=== PATIENT | female | born 1980 | race Caucasian/White ===

== ENCOUNTER 2016-08-29 19:05 | Emergency (ER) | payer OTHER ==
[2016-08-29 19:24] VITALS: BP 117/73
--- NOTE | 2016-08-29 19:24 | UC ---
Minor Trauma HPI - HPI Summary HPI Summary: 35 year old female presents right sided facial trauma secondary to a cane. I will send her to the ER to rule out mandibular fracture. I spoke to Desi Espinal. - History of Current Complaint Chief Complaint: UCTrauma Stated Complaint: FACIAL INJURY/PAIN Time Seen by Provider: 08/29/16 19:17 Hx Last Menstrual Period: ABLATION/E-E-SURE/hysterectomy - Allergies/Home Medications Allergies/Adverse Reactions: Allergies Allergy/AdvReac Type Severity Reaction Status Date / Time Metoclopramide [From Reglan] Allergy Intermediate Anxiety Verified 08/29/16 19: 16 Codeine Allergy syncope Verified 08/29/16 19:16 Home Medications: Home Medications Baclofen TAB* [Lioresal TAB*] 10 mg PO TID 08/29/16 [History Confirmed 08/29/16] Dicyclomine CAP* [Bentyl CAP*] 10 mg PO BEDTIME 08/29/16 [History Confirmed ] Venlafaxine ER (NF) [Effexor ER (NF)] 150 mg PO DAILY 08/29/16 [History Confirmed 08/29/16] carBAMazepine ER TAB(*) [TEGretol Xr TAB(*)] 300 mg PO BID 08/29/16 [History Confirmed 08/29/16] oxyCODONE/Acetamin 5/325 MG* [Percocet 5/325 TAB*] 1 tab PO Q8H PRN 08/29/16 [ History Confirmed 08/29/16] PMH/Surg Hx/FS Hx/Imm Hx Other History Of: Negative For: HIV, Hepatitis B, Hepatitis C - Surgical History Surgical History: Yes Surgery Procedure, Year, and Place: uterine ablation 2005. wisdom teeth . gallbladder 07/16/2012. tonsillectomy. HYSTERECTOMY FOR FIBROID TUMORS- AUGUST 2014 - Family History Known Family History: Positive: Cardiac Disease, Hypertension - Social History Alcohol Use: Occasionally Substance Use Type: None Smoking Status (MU): Current Every Day Smoker Type: Cigarettes Amount Used/How Often: 1 PK A DAY Length of Time of Smoking/Using Tobacco: 20 YRS Have You Smoked in the Last Year: Yes When Did the Patient Quit Smoking/Using Tobacco: 2 YRS AGO - Immunization History Most Recent Influenza Vaccination: 10/2014 Review of Systems Constitutional: Negative Skin: Negative Eyes: Other - right sided facial trauma ENT: Negative Respiratory: Negative Cardiovascular: Negative Gastrointestinal: Negative Genitourinary: Negative Motor: Negative Neurovascular: Negative Musculoskeletal: Negative Neurological: Negative Psychological: Negative All Other Systems Reviewed And Are Negative: Yes Physical Exam Triage Information Reviewed: Yes Eye Exam: Normal ENT: Positive: Other: - right sided facial trauma with tenderness over the mandibular bone. Dental Exam: Normal Neck exam: Normal Neck: Positive: 1 Respiratory Exam: Normal Cardiovascular Exam: Normal Abdominal Exam: Normal Musculoskeletal Exam: Normal Neurological Exam: Normal Psychological Exam: Normal Skin Exam: Normal Minor Trauma Course/Dx - Differential Dx/Diagnosis Provider Diagnoses: right sideded facial trauma Discharge - Discharge Plan Condition: Stable Disposition: AGAINST MEDICAL ADVICE Patient Education Materials: Facial Fracture (ED) Referrals: Razia rGant MD [Primary Care Provider] -
== END 2016-08-29 19:30 | disposition left against medical advice (07) ==
LOC: UCCORT 19:05
DX: S09.93XA Unspecified injury of face, initial encounter (principal); X58.XXXA Exposure to other specified factors, initial encounter; Y92.9 Unspecified place or not applicable; F17.210 Nicotine dependence, cigarettes, uncomplicated; Z88.5 Allergy status to narcotic agent; Z88.8 Allergy status to other drugs, medicaments and biological substances
CPT/HCPCS: 99212; G0463

== ENCOUNTER 2016-09-12 16:53 | Emergency (ER) | payer OTHER ==
[2016-09-12 17:06] VITALS: BP 129/69
--- NOTE | 2016-09-12 18:15 | UC ---
Respiratory Complaint HPI - HPI Summary HPI Summary: Pt presents with c/o of chest tightness, difficulty breathing . Pt reports taht she was diagnosed with pneumonia 9 days ago and is currently taking doxycycline. pt denies cough but c/o pain with deep breaths in left upper back. Pain is reproducible with palpation and worsens while laying on back - History of Current Complaint Hx Obtained From: Patient Hx Last Menstrual Period: ABLATION/E-E-SURE/hysterectomy ?: No Onset/Duration: Gradual Onset, Lasting Days, Still Present Timing: Constant Severity Initially: Mild Severity Currently: Mild Pain Intensity: 8 Pain Scale Used: 0-10 Numeric Aggravating Factors: Recumbent Position Associated Signs And Symptoms: Positive: Dyspnea - Risk Factors Pulmonary Embolism Risk Factors: Negative Cardiac Risk Factors: Negative Pseudomonas Risk Factors: Negative Tuberculosis Risk Factors: Negative <Viry Cherry NP - Last Filed: 09/12/16 18:10> <Anuradha Liao - Last Filed: 09/12/16 18:50> - History of Current Complaint Chief Complaint: UCRespiratory Stated Complaint: SHORTNESS OF BREATH Time Seen by Provider: 09/12/16 17:40 - Allergies/Home Medications Allergies/Adverse Reactions: Allergies Allergy/AdvReac Type Severity Reaction Status Date / Time Metoclopramide [From Reglan] Allergy Intermediate Anxiety Verified 09/12/16 17: 06 Codeine Allergy syncope Verified 09/12/16 17:06 Home Medications: Home Medications ALPRAZolam TAB* [Xanax TAB*] 0.5 mg PO TID PRN 09/12/16 [History Confirmed 09/12] Baclofen TAB* [Lioresal TAB*] 10 mg PO TID 09/12/16 [History Confirmed 09/12/16] DOXYcycline CAP(*) [DOXYcycline 100MG CAP(*)] 100 mg PO BID 09/12/16 [History Confirmed 09/12/16] Pravastatin Sodium [Pravachol] 40 mg PO DAILY 09/12/16 [History Confirmed ] PMH/Surg Hx/FS Hx/Imm Hx Previously Healthy: Yes Endocrine History: Dyslipidemia Psychological History: Anxiety Other History Of: Negative For: HIV, Hepatitis B, Hepatitis C - Surgical History Surgical History: Yes Surgery Procedure, Year, and Place: uterine ablation 2005. wisdom teeth . gallbladder 07/16/2012. tonsillectomy. HYSTERECTOMY FOR FIBROID TUMORS- AUGUST 2014 - Family History Known Family History: Positive: Cardiac Disease, Hypertension - Social History Occupation: Employed Full-time Lives: With Family Alcohol Use: None Substance Use Type: None Smoking Status (MU): Current Every Day Smoker Type: Cigarettes Amount Used/How Often: 1/2 PK A DAY Length of Time of Smoking/Using Tobacco: 20 YRS Have You Smoked in the Last Year: Yes When Did the Patient Quit Smoking/Using Tobacco: 2 YRS AGO - Immunization History Most Recent Influenza Vaccination: 10/2014 <Viry Cherry NP Last Filed: 09/12/16 18:10> Review of Systems Constitutional: Negative Skin: Negative Eyes: Negative ENT: Negative Respiratory: Other - pain with deep breathing Cardiovascular: Negative Gastrointestinal: Negative Genitourinary: Negative Motor: Negative Neurovascular: Negative Musculoskeletal: Myalgia - upper back/ribs left side Neurological: Negative Psychological: Negative All Other Systems Reviewed And Are Negative: Yes <Viry Cherry NP - Last Filed: 09/12/16 18:10> Physical Exam Triage Information Reviewed: Yes Appearance: Well-Appearing Vital Signs: Initial Vital Signs Temp 98.6 F 09/12/16 17:01 Pulse 100 09/12/16 17:01 Resp 18 09/12/16 17:01 BP 129/69 09/12/16 17:01 Pulse Ox 97 09/12/16 17:01 Vital Signs Reviewed: Yes Eye Exam: Normal ENT Exam: Normal Dental Exam: Normal Neck exam: Normal Respiratory Exam: Normal Cardiovascular Exam: Normal Abdominal Exam: Normal Musculoskeletal Exam: Other Musculoskeletal: Positive: Other: - tenderness upper left side back ~ Neurological Exam: Normal Psychological Exam: Normal Skin Exam: Normal <Viry Cherry NP Last Filed: 09/12/16 18:10> Vital Signs: Initial Vital Signs Temp 98.6 F 09/12/16 17:01 Pulse 100 09/12/16 17:01 Resp 18 09/12/16 17:01 BP 129/69 09/12/16 17:01 Pulse Ox 97 09/12/16 17:01 <Anuradha Liao - Last Filed: 09/12/16 18:50> UC Diagnostic Evaluation - Laboratory O2 Sat by Pulse Oximetry: 97 <Viry Cherry NP - Last Filed: 09/12/16 18:10> Respiratory Course/Dx - Differential Dx/Diagnosis Differential Diagnosis/HQI/PQRI: Other - costochondritis Provider Diagnoses: costochondritis <Viry Cherry NP - Last Filed: 09/12/16 18:10> Discharge <Viry Cherry NP - Last Filed: 09/12/16 18:10> <Anuradha Liao - Last Filed: 09/12/16 18:50> - Discharge Plan Condition: Stable Disposition: HOME Prescriptions: predniSONE TAB* [Deltasone TAB*] 20 mg PO DAILY #4 tab Patient Education Materials: Costochondritis (ED) Referrals: Savanah Rodriges PA [Primary Care Provider] - If Needed Additional Instructions: Please follow up with your PCP or return to clinic as needed Attestation Statement User Type: Provider - I was available for consult. This patient was seen by the [facility]. The patient was not presented to, seen by, or examined by me. -Gabriela <Anuradha Liao - Last Filed: 09/12/16 18:50>
== END 2016-09-12 17:55 | disposition home or self-care (01) ==
LOC: UCCORT 16:53
DX: M94.0 Chondrocostal junction syndrome [Tietze] (principal); E78.5 Hyperlipidemia, unspecified; Z88.5 Allergy status to narcotic agent; F41.9 Anxiety disorder, unspecified; Z87.891 Personal history of nicotine dependence
CPT/HCPCS: 99212; G0463

== ENCOUNTER 2016-12-07 12:56 | Emergency (ER) | payer OTHER ==
[2016-12-07 13:16] VITALS: BP 149/91
[2016-12-07] MEDS ORDERED: Ketorolac INJ* 60 MG/2 ML VIAL IM ONE (13:29)
--- NOTE | 2016-12-07 13:53 | UC ---
UC General HPI - HPI Summary HPI Summary: Pt reports history of trigeminal neuralgia. Pt reports that her PCP has moved and is now out of pain medications. On review of iSTOP pt was given 30 day supply of percocet from PCP. - History of Current Complaint Chief Complaint: UCUpperExtremity Stated Complaint: TRIGEMINAL NEURALGIA Time Seen by Provider: 12/07/16 13:14 Hx Obtained From: Patient Hx Last Menstrual Period: ABLATION/E-E-SURE/hysterectomy Onset/Duration: Gradual Onset, Lasting Days Timing: Constant Onset Severity: Mild Current Severity: Moderate Associated Signs & Symptoms: Positive: Other - facial pain, - Allergy/Home Medications Allergies/Adverse Reactions: Allergies Allergy/AdvReac Type Severity Reaction Status Date / Time Metoclopramide [From Reglan] Allergy Intermediate Anxiety Verified 12/07/16 13: 16 Codeine Allergy syncope Verified 12/07/16 13:16 Gabapentin Allergy Swelling Verified 12/07/16 13:16 PMH/Surg Hx/FS Hx/Imm Hx Previously Healthy: Yes Other History Of: Negative For: HIV, Hepatitis B, Hepatitis C - Surgical History Surgical History: Yes Surgery Procedure, Year, and Place: uterine ablation 2005. wisdom teeth . gallbladder 07/16/2012. tonsillectomy. HYSTERECTOMY FOR FIBROID TUMORS- AUGUST 2014 - Family History Known Family History: Positive: Cardiac Disease, Hypertension - Social History Occupation: Employed Full-time Lives: With Family Alcohol Use: Rare Substance Use Type: None Smoking Status (MU): Current Every Day Smoker Type: Cigarettes Amount Used/How Often: 1/2 PK A DAY Length of Time of Smoking/Using Tobacco: 20 YRS Have You Smoked in the Last Year: Yes When Did the Patient Quit Smoking/Using Tobacco: 2 YRS AGO - Immunization History Most Recent Influenza Vaccination: 10/2014 Review of Systems Constitutional: Negative Skin: Negative Eyes: Negative ENT: Negative Respiratory: Negative Cardiovascular: Negative Gastrointestinal: Negative Genitourinary: Negative Motor: Negative Neurovascular: Negative Musculoskeletal: Myalgia - right side of face that radiates to under right eye Neurological: Other - hx of trimgeminal neuralgia Psychological: Negative Is Patient Immunocompromised?: No All Other Systems Reviewed And Are Negative: Yes Physical Exam Triage Information Reviewed: Yes Appearance: Well-Appearing Vital Signs: Initial Vital Signs Temp 98.7 F 12/07/16 13:10 Pulse 103 12/07/16 13:10 Resp 24 12/07/16 13:10 BP 149/91 12/07/16 13:10 Pulse Ox 98 12/07/16 13:10 Vital Signs Reviewed: Yes Eye Exam: Normal ENT Exam: Normal Dental Exam: Normal Neck exam: Normal Respiratory Exam: Normal Cardiovascular Exam: Normal Musculoskeletal Exam: Normal Neurological Exam: Normal Psychological Exam: Normal Skin Exam: Other - c/o tenderness right side of face, cheek Course/Dx - Differential Dx - Multi-Symptom Differential Diagnoses: Other - trigeminal neuralgia Provider Diagnoses: Facial pain. tirgeminal neuralgia acute flair. Discharge - Discharge Plan Condition: Stable Disposition: HOME Prescriptions: Ketorolac TAB * [Toradol TAB *] 10 mg PO Q6H PRN #8 tab PRN Reason: Pain methylPREDNISolone TAB* [Medrol TAB*] 4 - 8 mg PO .SEE RISHABH #1 rishabh Patient Education Materials: Trigeminal Neuralgia (ED) Referrals: Savanah Rodriges PA [Physician Stove Bottom Worker] - If Needed
== END 2016-12-07 13:51 | disposition home or self-care (01) ==
LOC: UCCORT 12:56
DX: G50.0 Trigeminal neuralgia (principal); F17.210 Nicotine dependence, cigarettes, uncomplicated; Z88.6 Allergy status to analgesic agent
CPT/HCPCS: 96372; 99211; G0463; J1885

== ENCOUNTER → 2017-04-12 12:45 | Emergency (ER) | payer OTHER | END | disposition left against medical advice (07) | LOC: UCCORT 12:45 | DX: J34.89 Other specified disorders of nose and nasal sinuses (principal); Z53.21 Procedure and treatment not carried out due to patient leaving prior to being seen by health care provider ==

== ENCOUNTER 2017-09-22 15:41 | Emergency (ER) | payer OTHER ==
--- OUTSIDE RECORDS SUMMARY | 2017-09-22 16:02 | XMS REPORT ---
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 INTERMITTENT ASTHMA, UNCOMPLICATED 15 Performed at: RN - [facility] [address] [id number] Senior Client Advisor: Preethi Solano MD, Phone: [phone] OPERATION/PROCEDURE Lap. cholecystectomy DIAGNOSIS: "GALLBLADDER, LAP. CHOLECYSTECTOMY": MILD CHRONIC CHOLECYSTITIS. NO EVIDENCE OF ACUTE INFLAMMATION, DYSPLASIA NOR NEOPLASIA APPRECIATED. ADELFO/osmar 1345 GROSS The specimen is received in a single container additionally labeled "GALLBLADDER". This contains a grossly recognizable unopened gallbladder. This has a green shiny smooth surface and overall measures 6.5 x 2.5 x 1.8 cm. in overall dimensions. There is no a visible wall defect. The wall has a uniform thickness of 0.1 cm. The mucosal surface is green, velvety smooth and unremarkable. Trabeculations are noted. No garcia reticular discoloration of cholesterolosis is noted. No stones are noted. Inclusion Special Educator sections are submitted within a single cassette. JW/clf MICROSCOPIC Sections show gallbladder mucosa lined by columnar epithelium with focal synechia, and Rokitansky-Aschoff sinus formation. The submucosa has a mild infiltrate of lymphocytes and plasma cells. The muscular wall is slightly fibrotic and hypertrophied. PRE OPERATIVE DIAGNOSIS Cholecystitis REVIEW CODE CODE: I NANDO Carroll MD 07/20/12 1417 17 CULTURE TO FOLLOW 18 COLONY COUNT ! 10,000 - 20,000 CFU/ml Organism 1 ! MIXED URETHRAL CITLALY 19 POSSIBLE UROGENITAL CONTAMINATION. 20 07/13/12 LAB.[facility]ERT[facility] Deleted by Reflex Group [facility] 21 Note: Persistent reduction for 3 months or more in an eGFR <60 mL/min/1.73 m2 defines CKD. Patients with eGFR values >/=60 mL/min/1.73 m2 may also have CKD if evidence of persistent proteinuria is present. The original MDRD equation for estimated GFR is not valid for patients less than 18 years of age. Additional information may be found at www.[email or web address]. Procedures Date CPT Code Description Status 08/19/2017 23622 Biopsy Skin Lesion Completed 12/02/2016 08368 EKG-Tracing And Report Completed 10/24/2016 09078 Bronchospasm Provocation Evaluation Multi Spirometric Completed Determinati 10/24/2016 73700 Spirometry Completed 12/03/2015 31082 Ligation Or Biopsy,Temporal Artery Completed 08/18/2014 90915 Anesthesia, Vaginal Hysterectomy Completed 01/20/2014 10452 Anesthesia, Hysteroscopy, Hystersalpingography Completed 07/16/2012 69264 Laparoscopy; cholecystectomy Completed 07/16/2012 04479 Anesthesia, Upper Abdomen Surgery Not Otherwise Spec Completed 01/23/2011 53299 Myocardial Imaging Tomographic Multiple Study AT Rest Completed Or Stress 01/23/2011 05780 Stress Test Physician Super Only Completed 01/23/2011 04908 Stress Test Physician Super Only Completed 01/23/2011 85434 Stress Test Interpre And Report Only Completed 01/16/2011 92138 EKG-Tracing And Report Completed 01/16/2011 57162 EKG-Tracing And Report Completed 01/11/2011 07684 Echocardiogram Complete Completed 03/20/2008 74042 Colonoscopy With Polypectomy Completed 04/23/2000 09437 Cryocautery Of Cervix Completed 04/23/2000 40684 Destruct-Skin Tags/Lesions-Local Anesthesia- 2-14 Completed Lesions 04/23/2000 73750 Destruct-Skin Tags/Lesions-Local Anesthesia - First Completed Lesion 03/10/2000 14299 Colposcopy With Biopsy Completed 02/11/2000 04453 Post- Care Only Completed Encounters Type Date Location Provider CPT E/M Dx Office Visit 08/26/2017 3:45p Surgical Office Benito Lou 38737 C44.311 Shan Rey Office Visit 08/03/2017 3:15p Family Medicine TOM De La Cruz 97703 A09 Office Visit 07/27/2017 8:30a Surgical Office Abdirashid Almanza MD,FACS 74881 D48.5 Office Visit 07/02/2017 11:15a [place] [address] F41.9 Office Visit 06/24/2017 10:00a Surgical Office Abdirashid Almanza MD,FACS 17562 D48.5 Office Visit 06/08/2017 11:30a Surgical Office Abdirashid Almanza MD,FACS 53495 D48.5 Office Visit 05/26/2017 10:00a Surgical Office Abdirashid Almanza MD,FACS 03946 D48.5 Office Visit 05/21/2017 8:30a [place] [address] E87.6 F41.9 G50.0 D17.1 D48.5 Office Visit 04/16/2017 11:15a [place] [address] E87.6 R73.09 F41.9 Office Visit 03/12/2017 9:00a [place] [address] K31.84 G50.0 Office Visit 02/20/2017 10:15a Family Medicine Ninoska Forman M.D. 00398 B34.9 Office Visit 01/29/2017 3:15p [place] [address] Z00.01 R60.9 E78.2 J45.20 I10 G50.0 F17.210 K21.9 E66.01 R63.1 M79.1 Office Visit 01/16/2017 1:30p Family Medicine Terence Mary, [facility] 92552 R60.9 T42.6x5A Office Visit 01/05/2017 9:00a [place] [address] B34.9 G50.0 F17.210 Office Visit 12/31/2016 11:00a [facility] Carlene Thomas, PNP-BC, [place], 12603 G50.0 Ibclc I10 E78.2 J45.20 K21.9 F33.1 Office Visit 12/02/2016 10:20a Cardiology Office Dayron Bowen, 77818 J45.20 M.Demarcus, [facility] Z71.6 F06.4 R00.0 Office Visit 10/23/2016 1:00p [place] [address] J45.20 F17.210 Z71.6 G47.33 E66.01 Office Visit 07/07/2012 1:15p Surgical Office Benito Lou 24579 575.10 Shan Rey Office Visit 06/23/2012 11:47a Surgical Office Benito Lou 01507 789.01 Shan Rey Office Visit 04/23/2012 8:56a Cardiology Office Dayron Bowen, 52911 786.50 MTiffanie, [facility] Office Visit 01/27/2011 10:00a Cardiology [place] [address] 786.50 401.1 272.2 Office Visit 01/16/2011 11:00a Cardiology Office SADAF Adhikari 65645 786.50 401.1 272.2 Office Visit 03/16/2008 1:00p STEPHANIE Argueta M.D. 90577 578.1 Plan of Care Future Appointment(s):10/13/2017 3:00 pm - Abdirashid Almanza MD,FACS at [facility]111/20/2017 10:15 am - Rosa Liao MD at [facility]08/31/2017 - Abdirashid Almanza MD,FACSC44.311 Basal cell carcinoma of skin of noseComments: basal cell carcinoma of the left nare, incions is healing well, has little scab. will see her in 6 weeks to confirm continued healing. no macroscopic evidence of significant lesion at this time.with regards to the focally peripheral positive margin i discussed the options with herOption #1: refer her to a surgeon that perform MOH's surgery/plastic surgery because of the location of the lesion on her face for second opinion/treatmentOption #2: continue to monitor clinically. and if any clinical occurence occur, treat that with efudex cream early on, as she had benefit from cream treatment when she originally presented to me.Patient chose option #1 which i tend to agree with. will work on referring her as well.
[2017-09-22 16:45] VITALS: BP 123/81
--- NOTE | 2017-09-22 16:55 | UC ---
Ear Complaint HPI - HPI Summary HPI Summary: Pt c/o right ear ache and feeling of "itchiness" X 4 days. Pt has hx trigeminal neuralgia. - History of Current Complaint Chief Complaint: UCEar Stated Complaint: RIGHT EAR/DIZZINESS COMPLAINT Time Seen by Provider: 09/22/17 16:18 Hx Obtained From: Patient Hx Last Menstrual Period: ABLATION/E-E-SURE/hysterectomy ?: No Onset/Duration: Sudden Onset, Lasting Days, Still Present Severity Initially: Mild Severity Currently: Mild Pain Intensity: 5 Aggravating Factors: Nothing Alleviating Factors: Nothing Related History: Other (Noted In Comments) - trigeminal neuralgia - Allergies/Home Medications Allergies/Adverse Reactions: Allergies Allergy/AdvReac Type Severity Reaction Status Date / Time codeine Allergy See Comment Verified 09/22/17 16:35 gabapentin Allergy Swelling Verified 09/22/17 16:35 Of Face,Lips,& Throat metoclopramide [From Reglan] Allergy See Comment Verified 09/22/17 16:35 pregabalin [From Lyrica] Allergy Swelling Verified 09/22/17 16:35 Of Face,Lips,& Throat Home Medications: Home Medications Erythromycin TAB* 1 tab BID 09/22/17 [History Confirmed 09/22/17] Hydrochlorothiazide TAB* [Hydrodiuril TAB*] 1 tab DAILY 09/22/17 [History Confirmed 09/22/17] Omeprazole CAP* [Prilosec CAP* 20 MG] 1 cap DAILY 09/22/17 [History Confirmed ] Oxycodone HCl/Acetaminophen [Endocet 10-325 mg Tablet] 1 tab QID PRN 09/22/17 [ History Confirmed 09/22/17] Potassium Chlor TAB* [Potassium Chlor TAB 20 MEQ*] 1 tab DAILY 09/22/17 [ History Confirmed 09/22/17] PMH/Surg Hx/FS Hx/Imm Hx Previously Healthy: Yes Other History Of: Negative For: HIV, Hepatitis B, Hepatitis C - Surgical History Surgical History: Yes Surgery Procedure, Year, and Place: uterine ablation 2005. wisdom teeth . gallbladder 07/16/2012. tonsillectomy. HYSTERECTOMY FOR FIBROID TUMORS- AUGUST 2014 - Family History Known Family History: Positive: Cardiac Disease, Hypertension - Social History Occupation: Employed Full-time Lives: With Family Alcohol Use: Rare Substance Use Type: None Smoking Status (MU): Current Every Day Smoker Type: Cigarettes Amount Used/How Often: 1/2 PPD Length of Time of Smoking/Using Tobacco: 20 YRS Have You Smoked in the Last Year: Yes When Did the Patient Quit Smoking/Using Tobacco: 2 YRS AGO - Immunization History Most Recent Influenza Vaccination: 10/2014 Most Recent Tetanus Shot: utd Review of Systems Constitutional: Negative Skin: Negative Eyes: Negative ENT: Ear Ache - right ear Respiratory: Negative Cardiovascular: Negative Gastrointestinal: Negative Genitourinary: Negative Motor: Negative Neurovascular: Negative Musculoskeletal: Negative Neurological: Negative Psychological: Negative Is Patient Immunocompromised?: No All Other Systems Reviewed And Are Negative: Yes Physical Exam Triage Information Reviewed: Yes Appearance: Well-Appearing Vital Signs: Initial Vital Signs Temp 97.9 F 09/22/17 16:38 Pulse 86 09/22/17 16:38 Resp 16 09/22/17 16:38 BP 123/81 09/22/17 16:38 Pulse Ox 98 09/22/17 16:38 Vital Signs Reviewed: Yes Eye Exam: Normal ENT Exam: Normal ENT: Positive: Normal ENT inspection Dental Exam: Normal Neck exam: Normal Respiratory Exam: Normal Cardiovascular Exam: Normal Musculoskeletal Exam: Normal Neurological Exam: Normal Psychological Exam: Normal Skin Exam: Normal Ear Complaint Course/Dx - Differential Dx/Diagnosis Differential Diagnosis/HQI/PQRI: Otitis Externa, Otitis Media, TMJ Syndrome, Trigeminal Nueralgia Provider Diagnoses: right ear ache Discharge - Sign-Out/Discharge Documenting (check all that apply): Patient Departure - Discharge Plan Condition: Stable Disposition: HOME Patient Education Materials: Earache (ED) Referrals: Rosa Liao MD [Primary Care Provider] - If Needed Additional Instructions: Please follow up with your neurologist and PCP as needed. Per institutional requirements, I have reviewed the chart, however, I was not consulted specifically or made aware of this patient by the above midlevel provider. I did not personally evaluate, interact with , or disposition this patient. - Billing Disposition and Condition Condition: STABLE Disposition: Home
== END 2017-09-22 17:08 | disposition home or self-care (01) ==
LOC: UCCORT 15:41
DX: H92.01 Otalgia, right ear (principal); Z88.8 Allergy status to other drugs, medicaments and biological substances; Z87.891 Personal history of nicotine dependence
CPT/HCPCS: 99211; G0463

== ENCOUNTER 2018-06-22 10:51 | Emergency (ER) | payer OTHER ==
[2018-06-22 11:09] VITALS: BP 146/71
--- NOTE | 2018-06-22 11:39 | UC ---
Respiratory Complaint HPI - HPI Summary HPI Summary: Pt presents with c/o worsening productive cough that began 4 days ago. Pt states that she has generalized malaise, wheezing, SOB and productive cough with brown/green sputum. Unsure of fever, does not have thermometer at home - History of Current Complaint Chief Complaint: UCGeneralIllness Stated Complaint: COUGH,CONGESTION Time Seen by Provider: 06/22/18 11:18 Hx Obtained From: Patient Hx Last Menstrual Period: ABLATION/E-E-SURE/hysterectomy ?: No Onset/Duration: Gradual Onset, Lasting Days, Still Present, Worse Since - onset Timing: Constant Severity Initially: Mild Severity Currently: Moderate Pain Intensity: 6 Character: Cough: Productive, Sputum Description: - brown/green Aggravating Factors: Exertion, Deep Breaths, Recumbent Position Alleviating Factors: Nothing Associated Signs And Symptoms: Positive: Chills, Wheezing, URI, Nasal Congestion , Hoarseness - Risk Factors Pulmonary Embolism Risk Factors: Smoking Cardiac Risk Factors: Smoking Pseudomonas Risk Factors: Chronic Lung Disease - asthma Tuberculosis Risk Factors: Smoking - Allergies/Home Medications Allergies/Adverse Reactions: Allergies Allergy/AdvReac Type Severity Reaction Status Date / Time codeine Allergy See Comment Verified 06/22/18 11:09 gabapentin Allergy Swelling Verified 06/22/18 11:09 Of Face,Lips,& Throat metoclopramide [From Reglan] Allergy See Comment Verified 06/22/18 11:09 pregabalin [From Lyrica] Allergy Swelling Verified 06/22/18 11:09 Of Face,Lips,& Throat Home Medications: Home Medications Amitriptyline TAB* [Elavil TAB*] 10 mg PO BEDTIME 06/22/18 [History Confirmed ] PMH/Surg Hx/FS Hx/Imm Hx Previously Healthy: Yes Respiratory History: Asthma Other History Of: Negative For: HIV, Hepatitis B, Hepatitis C - Surgical History Surgical History: Yes Surgery Procedure, Year, and Place: uterine ablation 2005. wisdom teeth . gallbladder 07/16/2012. tonsillectomy. HYSTERECTOMY FOR FIBROID TUMORS- AUGUST 2014. TEMPORAL ARTERY BIOPSY - Family History Known Family History: Positive: Cardiac Disease, Hypertension - Social History Lives: With Family Alcohol Use: None Substance Use Type: None Smoking Status (MU): Current Every Day Smoker Type: Cigarettes Amount Used/How Often: 1 ppd Length of Time of Smoking/Using Tobacco: 20 YRS Have You Smoked in the Last Year: Yes Household Exposure Type: Cigarettes - Immunization History Most Recent Influenza Vaccination: 10/2014 Most Recent Tetanus Shot: utd Vaccination Up to Date: Yes Review of Systems All Other Systems Reviewed And Are Negative: Yes Constitutional: Positive: Chills, Fatigue Skin: Positive: Negative Eyes: Positive: Negative ENT: Positive: Sinus Congestion Respiratory: Positive: Shortness Of Breath, Cough Cardiovascular: Positive: Negative Gastrointestinal: Positive: Negative Genitourinary: Positive: Negative Motor: Positive: Negative Neurovascular: Positive: Negative Musculoskeletal: Positive: Myalgia Neurological: Positive: Negative Psychological: Positive: Negative Is Patient Immunocompromised?: No Physical Exam Triage Information Reviewed: Yes Appearance: Ill-Appearing Vital Signs: Initial Vital Signs Temp 98.8 F 06/22/18 11:01 Pulse 116 06/22/18 11:01 Resp 22 06/22/18 11:01 BP 146/71 06/22/18 11:01 Pulse Ox 90 06/22/18 11:01 Vital Signs Reviewed: Yes Eye Exam: Normal ENT: Positive: Nasal congestion Dental Exam: Normal Neck exam: Normal Respiratory: Positive: Decreased breath sounds, Wheezing Cardiovascular Exam: Normal Musculoskeletal Exam: Normal Neurological Exam: Normal Psychological Exam: Normal Skin Exam: Normal Respiratory Course/Dx - Differential Dx/Diagnosis Differential Diagnosis/HQI/PQRI: Asthma, Bronchitis, Exacerbation Of COPD Provider Diagnosis: Exacerbation of asthma, Bronchitis Discharge - Sign-Out/Discharge Documenting (check all that apply): Patient Departure All imaging exams completed and their final reports reviewed: No Studies - Discharge Plan Condition: Stable Disposition: HOME Prescriptions: Albuterol HFA INHALER* [Ventolin HFA Inhaler*] 1 - 2 puff INH Q4H PRN #1 mdi PRN Reason: Sob/Wheezing predniSONE TAB* [Deltasone 10 MG TAB*] 30 mg PO DAILY #12 tab Patient Education Materials: Acute Bronchitis (ED) Referrals: Rosa Liao MD [Primary Care Provider] - If Needed Additional Instructions: Please follow up with your PCP. - Billing Disposition and Condition Condition: STABLE Disposition: Home
== END 2018-06-22 11:51 | disposition home or self-care (01) ==
LOC: UCCORT 10:51
DX: J45.901 Unspecified asthma with (acute) exacerbation (principal); R05 Cough; F17.210 Nicotine dependence, cigarettes, uncomplicated; Z88.5 Allergy status to narcotic agent; Z88.8 Allergy status to other drugs, medicaments and biological substances
CPT/HCPCS: 99212; G0463

== ENCOUNTER 2019-02-10 11:34 | Emergency (ER) | payer OTHER | END 2019-02-10 12:46 | disposition left against medical advice (07) | LOC: UCCORT 11:34 | DX: Z53.21 Procedure and treatment not carried out due to patient leaving prior to being seen by health care provider (principal) ==